=== PATIENT | female | born 1975 | race Caucasian/White ===

== ENCOUNTER 2018-02-28 20:23 | Emergency (ER) | payer OTHER ==
--- NOTE | 2018-02-28 20:36 | EDM.PDOC ---
ED HPI GENERAL MEDICAL PROBLEM - General Chief Complaint: Abdominal Pain Stated Complaint: RIGHT ABDOMINAL PAIN,DIZZY Time Seen by Provider: 02/28/18 20:36 - History of Present Illness INITIAL COMMENTS - FREE TEXT/NARRATIVE: 42-year-old female presents emergency room with abdominal pain. Pain is right lower quadrant is been getting worse over the last several days. Eating seems to make it worse. She's had no constipation diarrhea some nausea no vomiting she's had multiple GI problems in the past she's had cholecystectomy she's had a hysterectomy she states she was supposed to have her ovaries taken out but this hasn't happened prior to coming here from [place] she was supposed to have colonoscopy this never happened. Patient denies any fevers chills no burning or frequency with urination the pain is somewhat sharp localized the right lower quadrant. 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 (see below) Other Treatments FULLING MILL OPERATOR: none Abdomen Pain Score (Numeric/FACES): 8 - Related Data Allergies Allergy/AdvReac Type Severity Reaction Status Date / Time aspirin Allergy Swelling Verified 02/28/18 20:35 Home Meds: Home Meds Citalopram Hydrobromide [Celexa] 40 mg PO DAILY 02/28/18 [History] Omeprazole 20 mg PO DAILY 02/28/18 [History] ED ROS GENERAL - Review of Systems Review Of Systems: See Below Constitutional: Reports: No Symptoms HEENT: Reports: No Symptoms Respiratory: Reports: No Symptoms Cardiovascular: Reports: No Symptoms Endocrine: Reports: No Symptoms GI/Abdominal: Reports: Abdominal Pain, Anorexia, Nausea, Other (Possible fevers) . Denies: Black Stool, Bloody Stool, Constipation, Diarrhea, Hematemesis, Vomiting : Reports: No Symptoms Skin: Reports: No Symptoms Neurological: Reports: No Symptoms Psychiatric: Reports: No Symptoms ED EXAM, GI/ABD - Physical Exam Exam: See Below Exam Limited By: No Limitations General Appearance: Alert, No Apparent Distress Head: Atraumatic, Normocephalic Neck: Normal Inspection, Supple, Non-Tender, Full Range of Motion Respiratory/Chest: No Respiratory Distress, Lungs Clear, Normal Breath Sounds, No Accessory Muscle Use, Chest Non-Tender Cardiovascular: Normal Peripheral Pulses, Regular Rate, Rhythm, No Edema, No Gallop, No JVD, No Murmur, No Rub GI/Abdominal Exam: Normal Bowel Sounds, Soft, Other (Marked tenderness in the right lower quadrant no appreciable rebound or guarding noted no rigidity) Back Exam: Normal Inspection. No: CVA Tenderness (L), CVA Tenderness (R) Extremities: Normal Inspection. No: No Pedal Edema Neurological: Alert, Oriented, Normal Cognition Course - Vital Signs Last Recorded V/S: Last Vital Signs Temp 36.7 C 02/28/18 20:34 Pulse 65 02/28/18 20:34 Resp 20 02/28/18 20:34 BP 141/77 H 02/28/18 20:34 Pulse Ox 97 02/28/18 20:34 - Orders/Labs/Meds Orders: Active Orders 24 hr Category Date Time Status Abdomen Pelvis w Cont [CT] Stat Exams 02/28/18 22:09 Taken HCG QUALITATIVE,URINE [URCHEM] Stat Lab 02/28/18 21:43 Ordered UA W/MICROSCOPIC [URIN] Stat Lab 02/28/18 21:43 Ordered Sodium Chloride 0.9% [Normal Saline] 1,000 ml Med 02/28/18 21:00 Active IV ASDIRECTED Sodium Chloride 0.9% [Saline Flush] Med 02/28/18 22:30 Active 10 ml FLUSH ONETIME PRN Medication Orders Sodium Chloride (Normal Saline) 1,000 mls @ 150 mls/hr IV ASDIRECTED JOE Sodium Chloride (Saline Flush) 10 ml FLUSH ONETIME PRN PRN Reason: IV FLUSH Last Admin: 02/28/18 22:50 Dose: 10 ml Labs: Laboratory Tests 02/28/18 02/28/18 02/28/18 Range/Units 20:54 20:54 21:43 WBC 6.69 (3.98-10.04) K/mm3 RBC 4.86 (3.98-5.22) M/mm3 Hgb 13.3 (11.2-15.7) gm/L Hct 40.6 (34.1-44.9) % MCV 83.5 (79.4-94.8) fl MCH 27.4 (25.6-32.2) pg MCHC 32.8 (32.2-35.5) g/dl RDW Std Deviation 41.4 (36.4-46.3) fL Plt Count 330 (182-369) K/mm3 MPV 9.7 (9.4-12.3) fl Neutrophils % (Manual) 49 (40-60) % Band Neutrophils % 0 (0-10) % Lymphocytes % (Manual) 34 (20-40) % Atypical Lymphs % 0 % Monocytes % (Manual) 7 (2-10) % Eosinophils % (Manual) 9 H (0.7-5.8) % Basophils % (Manual) 1 (0.1-1.2) Platelet Estimate Adequate Plt Morphology Comment Normal RBC Morph Comment Normal Sodium 141 (136-145) mEq/L Potassium 3.3 L (3.5-5.1) mEq/L Chloride 104 (98-107) mEq/L Carbon Dioxide 26 (21-32) mEq/L Anion Gap 14.3 (5-15) BUN 10 (7-18) mg/dL Creatinine 0.8 (0.55-1.02) mg/dL Est Cr Clr Drug Dosing 72.45 mL/min Estimated GFR (MDRD) > 60 (>60) mL/min BUN/Creatinine Ratio 12.5 L (14-18) Glucose 98 (74-106) mg/dL Calcium 8.4 L (8.5-10.1) mg/dL Total Bilirubin 0.3 (0.2-1.0) mg/dL Direct Bilirubin 0.10 (0.0-0.2) mg/dl Indirect Bilirubin 0.20 AST 16 (15-37) U/L ALT 23 (14-59) U/L Alkaline Phosphatase 71 (46-116) U/L Total Protein 7.2 (6.4-8.2) g/dl Albumin 3.4 (3.4-5.0) g/dl Globulin 3.8 gm/dL Albumin/Globulin Ratio 0.9 L (1-2) Lipase 190 (73-393) U/L Urine Color Yellow (Yellow) Urine Appearance Clear (Clear) Urine pH 6.0 (5.0-8.0) Ur Specific [place] > or = 1.030 (1.005-1.030) Urine Protein Negative (Negative) Urine Glucose (UA) Negative (Negative) Urine Ketones Negative (Negative) Urine Occult Blood Negative (Negative) Urine Nitrite Negative (Negative) Urine Bilirubin Negative (Negative) Urine Urobilinogen 0.2 (0.2-1.0) Ur Leukocyte Esterase Negative (Negative) Urine RBC 0-5 (0-5) /hpf Urine WBC 0-5 (0-5) /hpf Ur Epithelial Cells 5-10 H (0-5) /hpf Urine Bacteria Moderate H (FEW) /hpf Urine Mucus Few (FEW) /hpf Urine HCG, Qual (NEGATIVE) 02/28/18 Range/Units 21:43 WBC (3.98-10.04) K/mm3 RBC (3.98-5.22) M/mm3 Hgb (11.2-15.7) gm/L Hct (34.1-44.9) % MCV (79.4-94.8) fl MCH (25.6-32.2) pg MCHC (32.2-35.5) g/dl RDW Std Deviation (36.4-46.3) fL Plt Count (182-369) K/mm3 MPV (9.4-12.3) fl Neutrophils % (Manual) (40-60) % Band Neutrophils % (0-10) % Lymphocytes % (Manual) (20-40) % Atypical Lymphs % % Monocytes % (Manual) (2-10) % Eosinophils % (Manual) (0.7-5.8) % Basophils % (Manual) (0.1-1.2) Platelet Estimate Plt Morphology Comment RBC Morph Comment Sodium (136-145) mEq/L Potassium (3.5-5.1) mEq/L Chloride (98-107) mEq/L Carbon Dioxide (21-32) mEq/L Anion Gap (5-15) BUN (7-18) mg/dL Creatinine (0.55-1.02) mg/dL Est Cr Clr Drug Dosing mL/min Estimated GFR (MDRD) (>60) mL/min BUN/Creatinine Ratio (14-18) Glucose (74-106) mg/dL Calcium (8.5-10.1) mg/dL Total Bilirubin (0.2-1.0) mg/dL Direct Bilirubin (0.0-0.2) mg/dl Indirect Bilirubin AST (15-37) U/L ALT (14-59) U/L Alkaline Phosphatase (46-116) U/L Total Protein (6.4-8.2) g/dl Albumin (3.4-5.0) g/dl Globulin gm/dL Albumin/Globulin Ratio (1-2) Lipase (73-393) U/L Urine Color (Yellow) Urine Appearance (Clear) Urine pH (5.0-8.0) Ur Specific [place] (1.005-1.030) Urine Protein (Negative) Urine Glucose (UA) (Negative) Urine Ketones (Negative) Urine Occult Blood (Negative) Urine Nitrite (Negative) Urine Bilirubin (Negative) Urine Urobilinogen (0.2-1.0) Ur Leukocyte Esterase (Negative) Urine RBC (0-5) /hpf Urine WBC (0-5) /hpf Ur Epithelial Cells (0-5) /hpf Urine Bacteria (FEW) /hpf Urine Mucus (FEW) /hpf Urine HCG, Qual Negative (NEGATIVE) Meds: Medications Generic Name Dose Route Start Last Admin Trade Name Freq PRN Reason Stop Dose Admin Sodium Chloride 1,000 mls @ 150 mls/hr 02/28/18 21:00 Normal Saline IV ASDIRECTED JOE Sodium Chloride 10 ml 02/28/18 22:30 02/28/18 22:50 Saline Flush FLUSH 10 ml ONETIME PRN Administration IV FLUSH Discontinued Medications Generic Name Dose Route Start Last Admin Trade Name Freq PRN Reason Stop Dose Admin Diatrizoate Meglum/Diatrizoate Sod 90 ml 02/28/18 22:30 02/28/18 22:50 Gastrografin 37% PO 02/28/18 22:31 90 ml ONETIME ONE Administration Hydromorphone HCl 0.5 mg 02/28/18 21:29 02/28/18 21:38 Dilaudid IVPUSH 02/28/18 21:30 0.5 mg ONETIME ONE Administration Sodium Chloride 500 mls @ 999 mls/hr 02/28/18 20:45 02/28/18 20:54 Normal Saline IV 02/28/18 21:15 999 mls/hr .BOLUS ONE Administration Iopamidol 100 ml 02/28/18 22:30 02/28/18 22:49 Isovue-300 (61%) IVPUSH 02/28/18 22:31 100 ml ONETIME ONE Administration Ondansetron HCl 4 mg 02/28/18 20:46 02/28/18 20:54 Zofran IVPUSH 02/28/18 20:47 4 mg ONETIME ONE Administration Ondansetron HCl 4 mg 02/28/18 21:29 02/28/18 21:36 Zofran IVPUSH 02/28/18 21:30 4 mg ONETIME ONE Administration - Re-Assessments/Exams Free Text/Narrative Re-Assessment/Exam: 03/01/18 00:23 Labs nondiagnostic went ahead and proceeded CT because of her right lower quadrant pain this is normal Departure - Departure Time of Disposition: 00:23 Disposition: Home, Self-Care 01 Clinical Impression: Abdominal pain of unknown cause - Discharge Information Referrals: PCP,None [Primary Care Provider] - Forms: ED Department Discharge Additional Instructions: Return to the emergency room with any questions problems worsening symptoms. Follow up at the Hospital clinic and see if they can get you more of a workup. [phone]. You have been given 10 hydrocodone from that she now the waiting room allow 12 hours after using this medication before driving or returning to work. - My Orders Last 24 Hours: My Active Orders 02/28/18 21:00 Sodium Chloride 0.9% [Normal Saline] 1,000 ml IV ASDIRECTED 02/28/18 21:43 HCG QUALITATIVE,URINE [URCHEM] Stat UA W/MICROSCOPIC [URIN] Stat 02/28/18 22:09 Abdomen Pelvis w Cont [CT] Stat 02/28/18 22:30 Sodium Chloride 0.9% [Saline Flush] 10 ml FLUSH ONETIME PRN - Assessment/Plan Last 24 Hours: My Active Orders 02/28/18 21:00 Sodium Chloride 0.9% [Normal Saline] 1,000 ml IV ASDIRECTED 02/28/18 21:43 HCG QUALITATIVE,URINE [URCHEM] Stat UA W/MICROSCOPIC [URIN] Stat 02/28/18 22:09 Abdomen Pelvis w Cont [CT] Stat 02/28/18 22:30 Sodium Chloride 0.9% [Saline Flush] 10 ml FLUSH ONETIME PRN
[2018-02-28] MEDS ORDERED: Sodium Chloride 0.9% 500 ML IV ONE (20:45)
[2018-02-28] MEDS ORDERED: Ondansetron 4 MG/2 ML SDV IVPUSH ONE ×2 (20:46→21:29)
[2018-02-28] MEDS ORDERED: Sodium Chloride 0.9% 1,000 ML IV SCH (21:00)
[2018-02-28] MEDS ORDERED: HYDROmorphone 0.5 MG/0.5 ML SYRINGE IVPUSH ONE (21:29)
[2018-02-28] MEDS ORDERED: Sodium Chloride 0.9% 10 ML Syringe FLUSH PRN (22:30)
[2018-02-28] MEDS ORDERED: Iopamidol 612 MG/ML 100 ML Bottle IVPUSH ONE (22:30)
[2018-02-28] MEDS ORDERED: Diatrizoate Meglumine/Diatrizoate Sodium 37% 120 ML Bottle PO ONE (22:30)
--- NOTE | 2018-03-01 15:28 | CT ---
CT abdomen and pelvis Technique: Multiple axial sections were obtained from above the dome of the diaphragm inferiorly through the pubic symphysis. Intravenous contrast was utilized. No oral contrast has been given. Delayed images were obtained through the bladder. Comparison: No previous study. Findings: Visualized lung bases show nothing acute. Contrast is noted within the distal esophagus compatible with reflux. Liver shows no focal parenchymal abnormality. Spleen appears within normal limits. Adrenal glands show no nodule. Pancreas appears normal. Kidneys show symmetric contrast enhancement without hydronephrosis or mass. Aorta shows no aneurysmal dilatation. Surgical clip is seen from prior cholecystectomy. No retroperitoneal adenopathy or mesenteric abnormalities are seen. Appendix is seen which is normal in size. No pelvic mass or adenopathy is seen. Diverticuli are seen within the sigmoid colon without diverticulitis. Delayed images show contrast within the distal ureters and within the bladder. Bone window settings show scattered disc space narrowing most severe at L3-L4 and L5-S1 with vacuum phenomena. Sclerosis is seen within the L3-S1 vertebral bodies likely degenerative in etiology. Posterior spurring and degenerative apophyseal change is noted within the lower lumbar spine. Impression: 1. Incidental findings as noted above. Nothing acute is seen on CT study of the abdomen and pelvis. Diagnostic code #2 I agree with preliminary report issued by [employer] ([facility] preliminary report dictated on 03/01/18, 12:47 AM Central Time)
== END 2018-03-01 00:47 | disposition home or self-care (01) ==
LOC: JD.ED 20:23
DX: R10.31 Right lower quadrant pain (principal); Z88.8 Allergy status to other drugs, medicaments and biological substances; Z79.899 Other long term (current) drug therapy
CPT/HCPCS: 36415; 74177; 80048; 80076; 81001; 81025; 83690; 85007; 85027; 96361; 96374; 96375; 96376; 99284; J1170; J2405; J7040; J7050; Q9963; Q9967

== ENCOUNTER 2018-03-10 11:20 | Emergency (ER) | payer MEDICAID ==
--- NOTE | 2018-03-10 11:41 | EDM.PDOC ---
ED HPI GENERAL MEDICAL PROBLEM - General Chief Complaint: General Stated Complaint: RT SIDE PAIN,DIZZY,FALLS,NAUSEA Time Seen by Provider: 03/10/18 11:38 Source of Information: Reports: Patient History Limitations: Reports: No Limitations - History of Present Illness INITIAL COMMENTS - FREE TEXT/NARRATIVE: 42-year-old female presents to the ED stating that she has a severe migraine headache for the last several days. She states she's hardly getting a day in between where she doesn't have a bad headache. And otherwise is her chronic daily headaches associated with nausea and vomiting. She recently relocated to [facility] from [place]. She had these problems in [place] before leaving but this seemed to be getting worse. He states that she has been able to keep anything down for the last 2 days. She has also severe diarrhea 5- 6 loose high-volume watery stools per rectum per day. She was labeled with irritable bowel syndrome prior to leaving [place] and was supposed to have a colonoscopy carried out but which never done. She complains of diffuse right- sided abdominal pain worsening over time. She has noticed some blood on wiping on a few occasions but no true blood in the stool. She was worked up by Dr. Mosqueda 10 days ago through the ED and this included a CT of the abdomen which was reported to be normal. Patient said previous cholecystectomy and hysterectomy but has retained ovaries. Reports he was also supposed to get her ovaries removed prior to leaving [place]. She has never been placed on any remittive agent for prevention of headaches. She states that she is very lightheaded dizzy and will suddenly collapsed to the floor sometimes 2 or 3 times per day. She reports she had an MRI in [place] prior to leaving that state and it was reported to show scar tissue but no other abnormalities. This lady is going to require treatment with a primary care provider to help set up neurological and gastroenterology follow-ups. Onset: Other (Chronic problems) Onset Date: 03/01/18 (Diarrhea started about 7-8 days ago.) Duration: Chronic (Chronic daily headaches. Labeled as migraine because of associated nausea and vomiting. Chronic diarrhea and irritable bowel syndrome. Chronic right-sided joann-abdominal pain.) Location: Reports: Head, Abdomen Quality: Reports: Pressure, Throbbing, Other Severity: Severe (Labels her headaches as 10 on a 10. Abdominal pain is usually 6-7 out of 10.) Improves with: Reports: None Worsens with: Reports: Movement Context: Denies: Activity, Exercise, Lifting, Sick Contact, Trauma, Other Associated Symptoms: Reports: Loss of Appetite, Malaise, Nausea/Vomiting ( Associated with the severity of headache), Syncope (Recurrent syncopal problems) , Other (Recurrent syncopal events sometimes 2 or 3 times a day she'll go down to the floor. She has no apparent injuries or broken bones from these falls.). 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: Reports: Other (see below) (None.) Headache Pain Score (Numeric/FACES): 10 - Related Data Allergies Allergy/AdvReac Type Severity Reaction Status Date / Time aspirin Allergy Swelling Verified 03/10/18 11:35 Home Meds: Home Meds Citalopram Hydrobromide [Celexa] 40 mg PO DAILY 02/28/18 [History] Omeprazole 20 mg PO DAILY 02/28/18 [History] Acetaminophen/Butalbital/Caff [Fioricet 325-50-40 MG] 1 each PO Q6HR PRN #12 tab 03/10/18 [Rx] Acetaminophen/HYDROcodone [[place] 325-5 MG] 1 - 2 tab PO Q6H PRN #30 tablet 03/10 [Rx] Ondansetron [Zofran] 4 mg BUCCAL Q6H PRN #12 tab 03/10/18 [Rx] Polyethylene Glycol 3350 [MiraLAX] 255 gm PO DAILY #1 cont 03/10/18 [Rx] Past Medical History Cardiovascular History: Reports: Syncope (Recurrent syncopal events. This associate with large-volume diarrhea stool losses reported nausea and vomiting and not being able to eat or drink.) Gastrointestinal History: Reports: GERD, Other (See Below) (Usually has loose stools and has been labeled with irritable bowel syndrome. She requires a colonoscopy to rule out inflammatory bowel disorder.) Neurological History: Reports: Headaches, Chronic (Chronic daily headaches for several months but they seem to be getting worse.), Migraines, Other (See Below) - Past Surgical History GI Surgical History: Reports: Cholecystectomy Female Surgical History: Reports: Hysterectomy Social & Family History - Tobacco Use Smoking Status *Q: Current Every Day Smoker Years of Tobacco use: 20 Packs/Tins Daily: 0.5 - Caffeine Use Caffeine Use: Reports: Coffee, Tea - Recreational Drug Use Recreational Drug Use: No - Living Situation & Occupation Living situation: Reports: Occupation: Employed ED ROS GENERAL - Review of Systems Review Of Systems: See Below Constitutional: Reports: Malaise, Weakness, Fatigue, Decreased Appetite, Weight Loss. Denies: Fever, Chills HEENT: Reports: Glasses (For reading.) Respiratory: Reports: No Symptoms Cardiovascular: Reports: No Symptoms Endocrine: Reports: Fatigue GI/Abdominal: Reports: Abdominal Pain (Diffuse right joann-abdominal pain mostly lateral right mid), Diarrhea ( abdominal pain recently having quite severe diarrhea 6-7 large-volume stool losses per day that, without warning and couldn' t have caused accidents in the workplace. No recent antibiotic usage in the last 6 weeks ), Nausea, Vomiting (Dementia is related to GI problem or headaches.), Other (Has received labeled of irritable bowel syndrome for her chronic abdominal pain.). Denies: Difficulty Swallowing, Distension, Flatus, Hematemesis, Hematochezia, Melena : Reports: No Symptoms Musculoskeletal: Reports: Joint Pain Skin: Reports: No Symptoms (These hips and neck at times) Neurological: Reports: Dizziness, Headache (Chronic daily headaches), Syncope ( Continues to get dizzy lightheaded and pass out. This can sometimes happen 2 or 3 times daily.), Weakness. Denies: Numbness, Paresthesia, Pre-Existing Deficit , Seizure, Tingling, Tremors, Trouble Speaking, Difficulty Walking Psychiatric: Reports: Anxiety, Depression (On citalopram.) Hematologic/Lymphatic: Reports: No Symptoms Immunologic: Reports: No Symptoms ED EXAM, GENERAL - Physical Exam Exam: See Below Exam Limited By: No Limitations General Appearance: Alert, WD/WN, Moderate Distress, Other (White tearful and anxious. Wearing dark sunglasses otherwise examined in a dark room with her glasses off.) Eye Exam: Bilateral Eye: Normal Inspection, PERRL Throat/Mouth: Normal Inspection, Normal Lips, Other Head: Atraumatic, Normocephalic (Tongue is dry and coated) Neck: Normal Inspection, Supple, Non-Tender, Full Range of Motion, Tender Lateral. No: Carotid Bruit, Lymphadenopathy (L), Lymphadenopathy (R) Respiratory/Chest: Lungs Clear (Tachypnea, examination but she is quite anxious. ), Normal Breath Sounds, No Accessory Muscle Use, Chest Non-Tender, Respiratory Distress Cardiovascular: Normal Peripheral Pulses, Regular Rate, Rhythm, No Edema, No Gallop, No Murmur, No Rub Peripheral Pulses: 3+: Posterior Tibial (L), Posterior Tibial (R), Dorsalis Pedis (L), Dorsalis Pedis (R) GI/Abdominal: Guarding (Right mid and upper abdomen.), Tender (Tenderness throughout the right hemiabdomen particularly right mid lateral abdomen.), Abnormal Bowel Sounds (Fairly quiet sent at this time. She reports is usually growling and gurgling.). No: Rigid, Rebound Back Exam: Normal Inspection, Full Range of Motion Extremities: Normal Inspection, Normal Range of Motion, Non-Tender, No Pedal Edema Neurological: Oriented, CN II-XII Intact, Normal Cognition, Normal Reflexes, No Motor/Sensory Deficits Psychiatric: Tearful Skin Exam: Warm, Dry, Intact, Normal Color, No Rash Course - Vital Signs Last Recorded V/S: Last Vital Signs Temp 36.3 C 03/10/18 13:58 Pulse 60 03/10/18 13:58 Resp 20 03/10/18 11:28 BP 120/70 03/10/18 13:58 Pulse Ox 100 03/10/18 13:58 Orthostatic Blood Pressure [ 126/94 Standing] Orthostatic Blood Pressure [ 145/92 Sitting] Orthostatic Blood Pressure [ 136/79 Supine] - Orders/Labs/Meds Orders: Active Orders 24 hr Category Date Time Status Orthostatic Vital Signs [RC] ASDIRECTED Care 03/10/18 11:39 Active C DIFFICILE BY PCR W/NAP1 [MOLEC] Stat Lab 03/10/18 13:03 Ordered CULTURE STOOL + SHIGATOX [RM] Stat Lab 03/10/18 13:03 Ordered URINALYSIS W/MICROSCOPIC [UA W/MICROSCOPIC] [URIN] Stat Lab 03/10/18 12:10 Ordered WBC, STOOL [OP] Stat Lab 03/10/18 13:03 Ordered Labs: Laboratory Tests 03/10/18 03/10/18 03/10/18 Range/Units 11:55 11:55 12:10 WBC 6.65 (3.98-10.04) K/mm3 RBC 4.88 (3.98-5.22) M/mm3 Hgb 13.5 (11.2-15.7) gm/L Hct 41.1 (34.1-44.9) % MCV 84.2 (79.4-94.8) fl MCH 27.7 (25.6-32.2) pg MCHC 32.8 (32.2-35.5) g/dl RDW Std Deviation 40.5 (36.4-46.3) fL Plt Count 357 (182-369) K/mm3 MPV 9.6 (9.4-12.3) fl Neutrophils % (Manual) 62 H (40-60) % Band Neutrophils % 2 (0-10) % Lymphocytes % (Manual) 31 (20-40) % Atypical Lymphs % 0 % Monocytes % (Manual) 1 L (2-10) % Eosinophils % (Manual) 4 (0.7-5.8) % Basophils % (Manual) 0 L (0.1-1.2) Platelet Estimate Adequate RBC Morph Comment Normal Sodium 138 (136-145) mEq/L Potassium 3.8 (3.5-5.1) mEq/L Chloride 103 (98-107) mEq/L Carbon Dioxide 29 (21-32) mEq/L Anion Gap 9.8 (5-15) BUN 9 (7-18) mg/dL Creatinine 0.7 (0.55-1.02) mg/dL Est Cr Clr Drug Dosing 82.80 mL/min Estimated GFR (MDRD) > 60 (>60) mL/min BUN/Creatinine Ratio 12.9 L (14-18) Glucose 94 (74-106) mg/dL Calcium 8.8 (8.5-10.1) mg/dL Magnesium 1.9 (1.8-2.4) mg/dl Total Bilirubin 0.3 (0.2-1.0) mg/dL AST 16 (15-37) U/L ALT 21 (14-59) U/L Alkaline Phosphatase 74 (46-116) U/L C-Reactive Protein 0.3 (<1.0) mg/dL Total Protein 7.4 (6.4-8.2) g/dl Albumin 3.6 (3.4-5.0) g/dl Globulin 3.8 gm/dL Albumin/Globulin Ratio 1.0 (1-2) Urine Color Yellow (Yellow) Urine Appearance Clear (Clear) Urine pH 7.0 (5.0-8.0) Ur Specific [place] 1.020 (1.005-1.030) Urine Protein Negative (Negative) Urine Glucose (UA) Negative (Negative) Urine Ketones Negative (Negative) Urine Occult Blood Trace-intact H (Negative) Urine Nitrite Negative (Negative) Urine Bilirubin Negative (Negative) Urine Urobilinogen 0.2 (0.2-1.0) Ur Leukocyte Esterase Negative (Negative) Urine RBC 0-5 (0-5) /hpf Urine WBC 0-5 (0-5) /hpf Ur Epithelial Cells 0-5 (0-5) /hpf Urine Bacteria Many H (FEW) /hpf Urine Mucus Not seen (FEW) /hpf Meds: Medications Discontinued Medications Generic Name Dose Route Start Last Admin Trade Name Freq PRN Reason Stop Dose Admin Diphenhydramine HCl 25 mg 03/10/18 11:51 03/10/18 12:12 Benadryl IVPUSH 03/10/18 11:52 25 mg ONETIME ONE Administration Hydromorphone HCl 1 mg 03/10/18 11:51 03/10/18 12:15 Dilaudid IVPUSH 03/10/18 11:52 1 mg ONETIME ONE Administration Dextrose/Sodium Chloride 1,000 mls @ 999 mls/hr 03/10/18 11:45 03/10/18 12:13 Dextrose 5%-Normal Saline IV 999 mls/hr ASDIRECTED JOE Administration Metoclopramide HCl 10 mg 03/10/18 11:51 03/10/18 12:14 Reglan IVPUSH 03/10/18 11:52 10 mg ONETIME ONE Administration - Radiology Interpretation Free Text/Narrative:: 42-year-old female presents to the ED with chronic daily headache which is labeled as migrainous but is likely more likely be chronic daily headaches. This is associated with nausea and vomiting intermittently however. Chest shows chronic right joann-abdominal pain associate with now significant large-volume stool losses 56-7 times per day. This suggests a secretory diarrhea and a sample of stool be obtained if she passes one in the ED. Rule out Clostridium difficile and cultures will be obtained. She was tender in the right upper quadrant abdomen. She had a CT scan of the abdomen done 10 days ago through the ED which was reported as normal. Review this myself. She claims she's not been able to eat or drink for the last several days. She continues to have recurrent drop attacks or syncopal events and finds herself lying on the carpet fairly often. She hasn't got hurt however from any of these falls. States the headache pain is currently 10 out of 10. Associated with nausea and vomiting. She is lightheaded and very dizzy. Plan orthostatic BPs. IV will be D5 normal saline at open. Routine labs to be collected. Stool for culture and sensitivity and C. difficile enteritis will be checked. We'll give her Dilaudid 1 mg IV with Reglan 10 mg IV and Benadryl 25 mg IV for headache relief. It appears that she has had multiple investigations including recent MRI of her brain which did not show any abnormalities within the last 6 months. - Re-Assessments/Exams Free Text/Narrative Re-Assessment/Exam: 03/10/18 13:01 x-ray of the abdomen today reveals increased stool throughout the right hemicolon the descending colon and down into the rectum. Distention question how much diarrhea the patient is actually experiencing. I did review CT scan scan of the abdomen and pelvis done 10 days ago and it revealed no significant abnormalities other than several diverticuli of the sigmoid colon particularly. There was no acute diverticulitis. He did reveal significant degenerative arthritic changes throughout portions of the lumbar spine particular the facet joints and also throughout the sacrum. This may be more likely be the cause of her chronic right sided back /lateral abdominal pain. 03/10/18 13:08 Labs reveal a normal white count at 6.65 with 62% neutrophils and 2% bands reported. Hemoglobin is 13.5 with hematocrit of 41.1. Platelet count is 357,000. Sodium is 138 with a potassium of 3.8. Chloride is 103 with a bicarbonate of 29. Anion gap is normal at 9.8. BUN is 9 with a creatinine of 0.7. EGFR is greater than 60. Glucose is 94 calcium is 8.8. Magnesium is 1.9. Liver function is normal. C-reactive protein is 0.3. Urinalysis shows trace of occult blood with many bacteria seen. However there is negative leukocyte esterase and no wbc's noted on the micro-. 03/10/18 13:51 patient is feeling better. I had a long visit with her and I suggest that she go off the omeprazole encases the cause of the headache and cramping and diarrhea intermittently I continue to irritable bowel syndrome- like symptoms. Zantac 150 milligrams twice daily. Suggest use of MiraLAX powder 17 g once daily for the next 2-3 weeks to see if we can stabilize her bowel function as x-ray and CT suggests that there is a problem with constipation primarily involving the right hemicolon where all of her pain is. A lot of this pain may be referred from facet joint arthropathy in her lower back however. I will prescribe Imitrex tablets to be taken at the onset of her migraine headaches. She may not be able to fill the still her insurance kicks in March 24. She will use [place] 5/3/25 milligram tablets one or 2 every 6 hours as needed for back pain primarily but also for severe migraine if needed. Zofran 4 mg sublingually every 6 hours. For nausea relief if she gets a severe migraine. So we'll place her on meloxicam 15 mg daily for relief of low back pain arthritis. She is going to need follow-up with primary care practice recommended family practice at the opposite end of the hospital. She is going need to need referral to neurology if her headaches persist. She is going to need referral to gastroenterology or surgeon for colonoscopy. Departure - Departure Time of Disposition: 13:54 Disposition: Home, Self-Care 01 Condition: Fair Clinical Impression: Chronic daily headache, Migraine equivalent syndrome Abdominal pain Qualifiers: Abdominal location: right upper quadrant Qualified Code(s): R10.11 - Right upper quadrant pain Degenerative arthritis of lumbar spine Qualifiers: Spinal osteoarthritis complication: without myelopathy or radiculopathy Qualified Code(s): M47.816 - Spondylosis without myelopathy or radiculopathy, lumbar region - Discharge Information *PRESCRIPTION DRUG MONITORING PROGRAM REVIEWED*: No *COPY OF PRESCRIPTION DRUG MONITORING REPORT IN PATIENT SAMANTA: No Prescriptions: Acetaminophen/Butalbital/Caff [Fioricet 325-50-40 MG] 1 each PO Q6HR PRN #12 tab PRN Reason: migraine headache. Acetaminophen/HYDROcodone [[place] 325-5 MG] 1 - 2 tab PO Q6H PRN #30 tablet PRN Reason: back pain/migraine Ondansetron [Zofran] 4 mg BUCCAL Q6H PRN #12 tab PRN Reason: nausea or vomiting Polyethylene Glycol 3350 [MiraLAX] 255 gm PO DAILY #1 cont Instructions: Abdominal Pain, Adult, Migraine Headache Referrals: PCP,None [Primary Care Provider] - Forms: ED Department Discharge, ED Return to Work/School Form Additional Instructions: Evaluation in the emergency room today in regards to chronic headaches almost on a daily basis. Headaches are often associated with nausea and vomiting and are labeled as migraine equivalent headaches. I have some concerns that the may be aggravated by current use of omeprazole. Omeprazole is known to cause chronic headache syndrome. Second problem was chronic right sided abdominal pain. Creatinine today ,similar to CT done to 10 days ago reveal increased stool throughout the right hemicolon that may be causing a plugged sensation. May be causing causing chronic pain syndrome as stools not supposed to follow- up in the right colon but for multiple The left josie Therefore suggest the use of MiraLAX powder 17 g once daily to keep the bowels working regularly. Suggest trying this for a period of at least 2 weeks to see if it makes a difference. As we discussed discontinuing the omeprazole and replacing it with Zantac 150 milligrams once daily at bedtime would be equal amounts for controlling acid reflux disease. This may alleviate headaches and some abdominal cramping pain and diarrhea that you are experiencing is omeprazole can also do this. Medications that are used to abort migraine headaches called acceptance are contraindicated unfortunately when you are on citalopram due to potential adverse effects. Therefore suggest use of Fioracet tablets -1 at onset of migraine headache. He uses [place] tablets 5/3/25 milligrams as needed for headache and back pain relief. Just use of Zofran 4 mg under the tongue every 4-6 hours as needed for relief of nausea vomiting associate with migraine headache. Suggest a trial of anti inflammatory Meloxicam 15mg once daily for 2 weeks to see if thsi will ease up lower back pain arthritis inflamation. It can sometimes help reduce headaches as well. Suggest follow up with Dr Conteh or ROMI-- Nicole Pitts or Katherine Mosley on the family medicine unit of the [facility] to arrange follow up with neurologist and rebrander. - My Orders Last 24 Hours: My Active Orders 03/10/18 11:39 Orthostatic Vital Signs [RC] ASDIRECTED 03/10/18 12:10 URINALYSIS W/MICROSCOPIC [UA W/MICROSCOPIC] [URIN] Stat 03/10/18 13:03 C DIFFICILE BY PCR W/NAP1 [MOLEC] Stat CULTURE STOOL + SHIGATOX [RM] Stat WBC, STOOL [OP] Stat - Assessment/Plan Last 24 Hours: My Active Orders 03/10/18 11:39 Orthostatic Vital Signs [RC] ASDIRECTED 03/10/18 12:10 URINALYSIS W/MICROSCOPIC [UA W/MICROSCOPIC] [URIN] Stat 03/10/18 13:03 C DIFFICILE BY PCR W/NAP1 [MOLEC] Stat CULTURE STOOL + SHIGATOX [RM] Stat WBC, STOOL [OP] Stat
[2018-03-10] MEDS ORDERED: Dextrose 5%-0.9% NaCl 1,000 ML IV SCH (11:45)
[2018-03-10] MEDS ORDERED: Metoclopramide 10 MG/2 ML SDV IVPUSH ONE (11:51)
[2018-03-10] MEDS ORDERED: HYDROmorphone 0.5 MG/0.5 ML SYRINGE IVPUSH ONE (11:51)
[2018-03-10] MEDS ORDERED: diphenhydrAMINE 50 MG/ML SDV IVPUSH ONE (11:51)
--- NOTE | 2018-03-10 12:52 | CR ---
Abdomen: Supine view of the abdomen was obtained. Comparison: Prior CT abdomen and pelvis exam of 02/28/18. Surgical clips are seen from prior cholecystectomy. Calcifications are noted within the pelvis which are felt compatible with phleboliths. Minimal scoliosis is noted within the spine with slight degenerative change. Bowel gas pattern is normal. Impression: 1. Incidental findings. Diagnostic code #2
== END 2018-03-10 14:29 | disposition home or self-care (01) ==
LOC: JD.ED 11:20
DX: G43.109 Migraine with aura, not intractable, without status migrainosus (principal); M47.816 Spondylosis without myelopathy or radiculopathy, lumbar region; R10.11 Right upper quadrant pain; F17.210 Nicotine dependence, cigarettes, uncomplicated; Z79.899 Other long term (current) drug therapy; Z88.8 Allergy status to other drugs, medicaments and biological substances
CPT/HCPCS: 36415; 74018; 80053; 81001; 83735; 85007; 85027; 86140; 96361; 96374; 96375; 99284; J1170; J1200; J2765; J7042

== ENCOUNTER 2018-05-06 07:31 | Emergency (ER) | payer MEDICAID ==
[2018-05-06] MEDS ORDERED: Sodium Chloride 0.9% 10 ML Syringe FLUSH PRN (07:44)
[2018-05-06] MEDS ORDERED: Sodium Chloride 0.9% 1,000 ML IV SCH (07:45)
[2018-05-06] MEDS ORDERED: HYDROmorphone 0.5 MG/0.5 ML SYRINGE IVPUSH ONE (07:45)
--- NOTE | 2018-05-06 10:02 | EDM.PDOC ---
ED HPI GENERAL MEDICAL PROBLEM - General Chief Complaint: Abdominal Pain Stated Complaint: BACK PAIN/SIDE PAIN/ABDOMINAL PAIN Time Seen by Provider: 05/06/18 07:38 Source of Information: Reports: Patient History Limitations: Reports: No Limitations - History of Present Illness INITIAL COMMENTS - FREE TEXT/NARRATIVE: The patient presents with low back pain and lower abdominal pain. This all started with low back pain a few days ago. She did not hurt her self such as falling, lifting or twisting. She has pain going down both legs but more on the right. She has some numbness but no weakness. She has some pain that radiates to her lower abdomen. She has no frequency or burning with urination. She has had some trouble with her back and abdomen before. She had a CT done last month and it showed degenerative changes to the lumbar spine. She has no fever, chills, cough, chest pain, nausea or vomiting. 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, Home Treatments, NSAIDS Bilateral Lower Abdominal Pain Score (Numeric/FACES): 10 - Related Data Allergies Allergy/AdvReac Type Severity Reaction Status Date / Time aspirin Allergy Swelling Verified 05/06/18 07:45 ketorolac [From Toradol] Allergy Itching Verified 05/06/18 07:45 Home Meds: Home Meds Citalopram Hydrobromide [Celexa] 40 mg PO DAILY 02/28/18 [History] Omeprazole 20 mg PO DAILY 02/28/18 [History] Acetaminophen/Butalbital/Caff [Fioricet 325-50-40 MG] 1 each PO Q6HR PRN #12 tab 03/10/18 [Rx] Acetaminophen/HYDROcodone [[place] 325-5 MG] 1 - 2 tab PO Q6H PRN #30 tablet 03/10 [Rx] Cyclobenzaprine [Flexeril] 10 mg PO TID PRN #20 tab 05/06/18 [Rx] Hydrocodone/Acetaminophen [Hydrocodon-Acetaminophen 5-325] 1 - 2 each PO Q6HR PRN #20 tablet 05/06/18 [Rx] Polyethylene Glycol 3350 [MiraLAX] 255 gm PO DAILY 05/06/18 [History] Past Medical History Cardiovascular History: Reports: Syncope Gastrointestinal History: Reports: GERD, Other (See Below) 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) Other LINOTYPE MACHINIST History: HISTORECTOMY Musculoskeletal History: Reports: Arthritis, Back Pain, Chronic Neurological History: Reports: Headaches, Chronic, Migraines, Other (See Below) - Past Surgical History GI Surgical History: Reports: Cholecystectomy Female Surgical History: Reports: Hysterectomy Social & Family History - Family History Family Medical History: Noncontributory - Tobacco Use Smoking Status *Q: Never Smoker - Caffeine Use Caffeine Use: Reports: Soda - Recreational Drug Use Recreational Drug Use: No - Living Situation & Occupation Living situation: Reports: Occupation: Employed ED ROS GENERAL - Review of Systems Review Of Systems: See Below Constitutional: Reports: No Symptoms HEENT: Reports: No Symptoms Respiratory: Reports: No Symptoms Cardiovascular: Reports: No Symptoms Endocrine: Reports: No Symptoms GI/Abdominal: Reports: Abdominal Pain. Denies: Nausea, Vomiting : Reports: No Symptoms Musculoskeletal: Reports: Back Pain ED EXAM, GI/ABD - Physical Exam Exam: See Below Exam Limited By: No Limitations General Appearance: Alert, No Apparent Distress Ears: Normal External Exam Nose: Normal Inspection Head: Atraumatic, Normocephalic Neck: Normal Inspection Respiratory/Chest: No Respiratory Distress, Lungs Clear, Normal Breath Sounds Cardiovascular: Regular Rate, Rhythm, No Edema, No Murmur GI/Abdominal Exam: Soft, No Organomegaly, No Mass, Tender (Mild tenderness to the lower abdomen) Back Exam: Other (Pain upon palpation to the low back with more on the right.) Extremities: Normal Inspection Neurological: Alert, Oriented, Normal Reflexes, No Motor/Sensory Deficits Course - Vital Signs Last Recorded V/S: Last Vital Signs Temp 98.2 F 05/06/18 07:39 Pulse 76 05/06/18 07:39 Resp 17 05/06/18 07:39 BP 114/97 H 05/06/18 07:39 Pulse Ox 100 05/06/18 07:39 - Orders/Labs/Meds Orders: Active Orders 24 hr Category Date Time Status Cardiac Monitoring [RC] . DIRECTED Care 05/06/18 07:44 Active Peripheral IV Care [RC] . DIRECTED Care 05/06/18 07:45 Active Sodium Chloride 0.9% [Normal Saline] 1,000 ml Med 05/06/18 07:45 Active IV ASDIRECTED Sodium Chloride 0.9% [Saline Flush] Med 05/06/18 07:44 Active 10 ml FLUSH ASDIRECTED PRN Peripheral IV Insertion Adult [OM.PC] Stat Oth 05/06/18 07:44 Ordered Medication Orders Sodium Chloride (Normal Saline) 1,000 mls @ 125 mls/hr IV ASDIRECTED JOE Last Admin: 05/06/18 08:19 Dose: 125 mls/hr Sodium Chloride (Saline Flush) 10 ml FLUSH ASDIRECTED PRN PRN Reason: Keep Vein Open Last Admin: 05/06/18 08:57 Dose: 10 ml Labs: Laboratory Tests 05/06/18 05/06/18 05/06/18 Range/Units 08:00 08:00 09:00 WBC 5.16 (3.98-10.04) K/mm3 RBC 4.92 (3.98-5.22) M/mm3 Hgb 13.9 (11.2-15.7) gm/L Hct 41.6 (34.1-44.9) % MCV 84.6 (79.4-94.8) fl MCH 28.3 (25.6-32.2) pg MCHC 33.4 (32.2-35.5) g/dl RDW Std Deviation 40.3 (36.4-46.3) fL Plt Count 319 (182-369) K/mm3 MPV 10.0 (9.4-12.3) fl Neut % (Auto) 57.6 (34.0-71.1) % Lymph % (Auto) 29.8 (19.3-51.7) % [place] % (Auto) 6.0 (4.7-12.5) % Eos % (Auto) 5.4 (0.7-5.8) Baso % (Auto) 1.0 (0.1-1.2) % Neut # (Auto) 2.97 (1.56-6.13) K/mm3 Lymph # (Auto) 1.54 (1.18-3.74) K/mm3 [place] # (Auto) 0.31 (0.24-0.36) K/mm3 Eos # (Auto) 0.28 (0.04-0.36) K/mm3 Baso # (Auto) 0.05 (0.01-0.08) K/mm3 Sodium 139 (136-145) mEq/L Potassium 4.0 (3.5-5.1) mEq/L Chloride 105 (98-107) mEq/L Carbon Dioxide 22 (21-32) mEq/L Anion Gap 16.0 H (5-15) BUN 12 (7-18) mg/dL Creatinine 0.7 (0.55-1.02) mg/dL Est Cr Clr Drug Dosing 82.80 mL/min Estimated GFR (MDRD) > 60 (>60) mL/min BUN/Creatinine Ratio 17.1 (14-18) Glucose 102 (74-106) mg/dL Calcium 8.9 (8.5-10.1) mg/dL Total Bilirubin 0.3 (0.2-1.0) mg/dL AST 13 L (15-37) U/L ALT 7 L (14-59) U/L Alkaline Phosphatase 67 (46-116) U/L Total Protein 7.5 (6.4-8.2) g/dl Albumin 3.6 (3.4-5.0) g/dl Globulin 3.9 gm/dL Albumin/Globulin Ratio 0.9 L (1-2) Urine Color Yellow (Yellow) Urine Appearance Clear (Clear) Urine pH 6.0 (5.0-8.0) Ur Specific [place] > or = 1.030 (1.005-1.030) Urine Protein Negative (Negative) Urine Glucose (UA) Negative (Negative) Urine Ketones Negative (Negative) Urine Occult Blood Trace-lysed H (Negative) Urine Nitrite Negative (Negative) Urine Bilirubin Negative (Negative) Urine Urobilinogen 0.2 (0.2-1.0) Ur Leukocyte Esterase Negative (Negative) Urine RBC 0-5 (0-5) /hpf Urine WBC 0-5 (0-5) /hpf Ur Epithelial Cells 5-10 H (0-5) /hpf Urine Bacteria Many H (FEW) /hpf Urine Mucus Many H (FEW) /hpf Meds: Medications Generic Name Dose Route Start Last Admin Trade Name Freq PRN Reason Stop Dose Admin Sodium Chloride 1,000 mls @ 125 mls/hr 05/06/18 07:45 05/06/18 08:19 Normal Saline IV 125 mls/hr ASDIRECTED JOE Administration Sodium Chloride 10 ml 05/06/18 07:44 05/06/18 08:57 Saline Flush FLUSH 10 ml ASDIRECTED PRN Administration Keep Vein Open Discontinued Medications Generic Name Dose Route Start Last Admin Trade Name Na PRN Reason Stop Dose Admin Diazepam 5 mg 05/06/18 07:45 05/06/18 08:11 Valium IVPUSH 05/06/18 07:46 5 mg ONETIME ONE Administration Hydromorphone HCl 0.5 mg 05/06/18 07:45 05/06/18 08:09 Dilaudid IVPUSH 05/06/18 07:46 0.5 mg ONETIME ONE Administration - Re-Assessments/Exams Free Text/Narrative Re-Assessment/Exam: 05/06/18 10:00 I ordered an IV NS, labs, UA, dilaudid and valium. Her CBC and CMP looks good. Her UA shows no UTI. I will get her a muscle relaxer and something more for pain. She is having an MRI of her brain on the . I feel she needs an MRI of her lumbar spine. I will order that. I will discharge her home. Departure - Departure Time of Disposition: 10:05 Disposition: Home, Self-Care 01 Condition: Good Clinical Impression: Low back pain Qualifiers: Chronicity: acute Back pain laterality: right Sciatica presence: with sciatica Sciatica laterality: sciatica of right side Qualified Code(s): M54.41 - Lumbago with sciatica, right side - Discharge Information *PRESCRIPTION DRUG MONITORING PROGRAM REVIEWED*: No *COPY OF PRESCRIPTION DRUG MONITORING REPORT IN PATIENT SAMANTA: No Prescriptions: Hydrocodone/Acetaminophen [Hydrocodon-Acetaminophen 5-325] 1 - 2 each PO Q6HR PRN #20 tablet PRN Reason: Pain Cyclobenzaprine [Flexeril] 10 mg PO TID PRN #20 tab PRN Reason: Pain Referrals: Elaine Vazquez MD [Primary Care Provider] - 2 Weeks Additional Instructions: Take the medication as prescribed for pain. I put an order in for an MRI of your back. They will call you with a time. Please return if you are worse. - My Orders Last 24 Hours: My Active Orders 05/06/18 07:44 Cardiac Monitoring [RC] . DIRECTED Sodium Chloride 0.9% [Saline Flush] 10 ml FLUSH ASDIRECTED PRN Peripheral IV Insertion Adult [OM.PC] Stat 05/06/18 07:45 Peripheral IV Care [RC] . DIRECTED Sodium Chloride 0.9% [Normal Saline] 1,000 ml IV ASDIRECTED - Assessment/Plan Last 24 Hours: My Active Orders 05/06/18 07:44 Cardiac Monitoring [RC] . DIRECTED Sodium Chloride 0.9% [Saline Flush] 10 ml FLUSH ASDIRECTED PRN Peripheral IV Insertion Adult [OM.PC] Stat 05/06/18 07:45 Peripheral IV Care [RC] . DIRECTED Sodium Chloride 0.9% [Normal Saline] 1,000 ml IV ASDIRECTED
== END 2018-05-06 10:20 | disposition home or self-care (01) ==
LOC: JD.ED 07:31
DX: M54.41 Lumbago with sciatica, right side (principal); K21.9 Gastro-esophageal reflux disease without esophagitis; Z79.899 Other long term (current) drug therapy; Z88.6 Allergy status to analgesic agent
CPT/HCPCS: 36415; 80053; 81001; 85025; 96361; 96374; 96375; 99283; J1170; J3360; J7040; J7050

== ENCOUNTER 2018-08-25 17:28 | Emergency (ER) | payer MEDICAID ==
[2018-08-25] MEDS ORDERED: Sodium Chloride 0.9% 1,000 ML IV ONE (17:59)
[2018-08-25] MEDS ORDERED: Ondansetron 4 MG/2 ML SDV IVPUSH ONE (17:59)
[2018-08-25] MEDS ORDERED: Haloperidol Lactate 5 MG/ML SDV IM ONE (17:59)
[2018-08-25] MEDS ORDERED: Benztropine 1 MG Tab PO STA (17:59)
--- NOTE | 2018-08-25 18:12 | EDM.PDOC ---
ED HPI GENERAL MEDICAL PROBLEM - General Chief Complaint: Gastrointestinal Problem Stated Complaint: VOMITING X 3 DAYS CANT DRINK ANYTHING Time Seen by Provider: 08/25/18 17:38 Source of Information: Reports: Patient, RN Notes Reviewed History Limitations: Reports: No Limitations - History of Present Illness INITIAL COMMENTS - FREE TEXT/NARRATIVE: The patient states that she has had nausea and emesis, generalized body aches, and a headache for the past 3 days. She describes her headache as sharp in character. It waxes and wanes and it is worse if she is supine. She reports both photophobia and phonophobia. She reports seeing dots, but denies having any neurologic symptoms, such as tingling, numbness, or weakness. She states that her current headache is similar to prior headaches, that she gets as often as 2-3 times a week. She states that she is under the care of the Neurologist Dr. Trivedi, and is prescribed both Topamax BID and rizatriptan (Maxalt), , but that due to her nausea and emesis, she cannot hold either of these medicines down. She took one rizatriptan last night, but after she vomited it up , she did not take any today. No recent fever. Patient has had constipation, and no diarrhea. The patient states that the last imaging study of her head was a MRI in mid June. She reports that it found anatomic abnormalities, that she does not recall the names of. The patient acknowledges that she is under a great deal of stress, due to a separation from her . The patient is tearful in the ED. The patient[facility] PCP [facility] at [facility], but the patient does not recall her name. The patient states that her vaccinations are up-to-date, but that she did not receive an influenza vaccine this season. headache Pain Score (Numeric/FACES): 7 generalized aches Pain Score (Numeric/FACES): 5 - Related Data Allergies Allergy/AdvReac Type Severity Reaction Status Date / Time aspirin Allergy Swelling Verified 08/25/18 17:41 Home Meds: Home Meds Citalopram Hydrobromide [Celexa] 40 mg PO DAILY 02/28/18 [History] Omeprazole 40 mg PO DAILY 02/28/18 [History] Ondansetron [Zofran ODT] 1 tab PO Q8H PRN #10 tab.dis 08/25/18 [Rx] Rizatriptan Benzoate [Rizatriptan] 10 mg PO ASDIRECTED PRN 08/25/18 [History] Topiramate [Topamax] 50 mg PO BID 08/25/18 [History] Past Medical History Gastrointestinal History: Reports: GERD, Other (See Below) (Rectocele) LMP (Approximate): Other (See Below) (Ovarian cysts) Musculoskeletal History: Reports: Back Pain, Chronic (due to arthritis) Neurological History: Reports: Migraines - Past Surgical History GI Surgical History: Reports: Cholecystectomy (2009) Female Surgical History: Reports: Hysterectomy, Tubal Ligation (2001) Social & Family History - Family History Family Medical History: Noncontributory - Tobacco Use Smoking Status *Q: Current Every Day Smoker Years of Tobacco use: 24 Packs/Tins Daily: 0.5 - Caffeine Use Caffeine Use: Reports: Coffee - Alcohol Use Alcohol Use History: Yes Alcohol Use Frequency: Rarely - Recreational Drug Use Recreational Drug Use: No - Living Situation & Occupation Living situation: Reports: (), Alone 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 - Physical Exam Exam: See Below Exam Limited By: No Limitations General Appearance: Alert, WD/WN, No Apparent Distress Eye Exam: Bilateral Eye: EOMI, Normal Inspection, PERRL Ears: Normal External Exam, Hearing Grossly Normal Nose: Normal Inspection Throat/Mouth: Normal Inspection, Normal Lips, Normal Voice, No Airway Compromise Head Exam: Atraumatic, Normocephalic Neck: Normal Inspection, Full Range of Motion Respiratory/Chest: No Respiratory Distress, Lungs Clear, Normal Breath Sounds, No Accessory Muscle Use Cardiovascular: Normal Peripheral Pulses, Regular Rate, Rhythm, No Gallop, No JVD, No Murmur, No Rub GI/Abdominal: Normal Bowel Sounds, Soft, Non-Tender, No Organomegaly, No Distention, No Abnormal Bruit, No Mass (Female) Exam: Deferred Rectal (Female) Exam: Deferred Neuro Exam (Abbreviated): Alert, Oriented, CN II-XII Intact, Normal Cognition, No Motor/Sensory Deficits Back Exam: Normal Inspection, Full Range of Motion, NT Extremities: Normal Inspection, Normal Range of Motion, No Pedal Edema, Normal Capillary Refill Psychiatric: Anxious, Tearful Skin Exam: Warm, Dry, Intact, Normal Color, No Rash Course - Vital Signs Last Recorded V/S: Last Vital Signs Temp 36.5 C 08/25/18 17:37 Pulse 96 08/25/18 17:37 Resp 18 08/25/18 17:37 BP 157/93 H 08/25/18 17:37 Pulse Ox 98 08/25/18 17:37 - Orders/Labs/Meds Meds: Medications Discontinued Medications Generic Name Dose Route Start Last Admin Trade Name Na PRN Reason Stop Dose Admin Benztropine Mesylate 1 mg 08/25/18 17:59 08/25/18 18:55 Cogentin PO 08/25/18 18:00 1 mg ONETIME STA Administration Haloperidol Lactate 5 mg 08/25/18 17:59 08/25/18 18:23 Haldol IM 08/25/18 18:00 5 mg ONETIME ONE Administration Sodium Chloride 1,000 mls @ 999 mls/hr 08/25/18 17:59 08/25/18 18:22 Normal Saline IV 08/25/18 18:59 999 mls/hr ONETIME ONE Administration Ondansetron HCl 4 mg 08/25/18 17:59 08/25/18 18:19 Zofran IVPUSH 08/25/18 18:00 4 mg ONETIME ONE Administration - Re-Assessments/Exams Free Text/Narrative Re-Assessment/Exam: 08/25/18 18:17 The patient will receive IM Haldol, IV Zofran, and IV fluid. Once her nausea has subsided, she can receive oral Cogentin. As the patient underwent a MRI just a month and a half ago, and her neurologic exam today is normal, an emergency CT scan of her head is not indicated. 08/25/18 19:09 The patient states that the Haldol significantly improved her headache, and she looks much better now. There is still about 500 mL of IV fluid to infuse, however, I will prepare the patient's discharge at this time. I will send in a prescription for Zofran. With her nausea and emesis under control, the patient can take her usual Topamax, Prilosec, and, if necessary, rizatriptan. Departure - Departure Time of Disposition: 19:10 Disposition: Home, Self-Care 01 Condition: Fair Clinical Impression: Migraine headache with aura - Discharge Information *PRESCRIPTION DRUG MONITORING PROGRAM REVIEWED*: Not Applicable *COPY OF PRESCRIPTION DRUG MONITORING REPORT IN PATIENT SAMANTA: Not Applicable Referrals: PCP,None [Primary Care Provider] - Forms: ED Department Discharge Additional Instructions: You were seen in the emergency room for 3 days of a headache, vomiting, and body aches. You received treatment for migraine headache in the ER, with significant improvement in your symptoms. A prescription for the anti-nausea medicine Zofran has been sent to the [facility], located in the [facility]. The pharmacy will be open until 10:00 tonight. Dissolve one tablet of Zofran on your tongue up to every 8 hours, as needed for nausea/vomiting. Get plenty of rest tonight in a dark, quiet place. Stay adequately hydrated. Follow-up with your PCP as needed. If any other problems, please do not hesitate to return to the ER.
== END 2018-08-25 19:43 | disposition home or self-care (01) ==
LOC: JD.ED 17:28
DX: G43.109 Migraine with aura, not intractable, without status migrainosus (principal); F17.210 Nicotine dependence, cigarettes, uncomplicated; K21.9 Gastro-esophageal reflux disease without esophagitis; Z88.6 Allergy status to analgesic agent; Z79.899 Other long term (current) drug therapy
CPT/HCPCS: 96361; 96372; 96374; 99284; A9270; J1630; J2405; J7040

== ENCOUNTER 2018-09-03 05:50 | Emergency (ER) | payer MEDICAID ==
--- NOTE | 2018-09-03 07:23 | EDM.PDOC ---
ED HPI GENERAL MEDICAL PROBLEM - General Chief Complaint: Lower Extremity Injury/Pain Stated Complaint: RIGHT ANKLE INJURY Time Seen by Provider: 09/03/18 07:00 Source of Information: Reports: Patient History Limitations: Reports: No Limitations - History of Present Illness INITIAL COMMENTS - FREE TEXT/NARRATIVE: The patient presents with right ankle and foot pain. She says she slipped and fell on Thursday and her ankle ended up under her. She can walk on it but she has pain and swelling. She has no other injury. Onset: Sudden Duration: Day(s): Location: Reports: Upper Extremity, Right (ankle and foot) Quality: Reports: Sharp Severity: Severe Improves with: Reports: Immobilization Worsens with: Reports: Movement Context: Reports: Trauma (slipped and fell) Associated Symptoms: Reports: No Other Symptoms Right Ankle Pain Score (Numeric/FACES): 8 - Related Data Allergies Allergy/AdvReac Type Severity Reaction Status Date / Time aspirin Allergy Swelling Verified 09/03/18 06:32 Home Meds: Home Meds Citalopram Hydrobromide [Celexa] 40 mg PO DAILY 02/28/18 [History] Omeprazole 40 mg PO DAILY 02/28/18 [History] Rizatriptan Benzoate [Rizatriptan] 10 mg PO ASDIRECTED PRN 08/25/18 [History] Topiramate [Topamax] 50 mg PO BID 08/25/18 [History] Hydrocodone/Acetaminophen [Hydrocodon-Acetaminophen 5-325] 1 - 2 each PO Q6HR PRN #10 tablet 09/03/18 [Rx] Past Medical History Cardiovascular History: Reports: Syncope Gastrointestinal History: Reports: GERD Other Gastrointestinal History: rectocele 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 Musculoskeletal History: Reports: Back Pain, Chronic Neurological History: Reports: Migraines - Past Surgical History GI Surgical History: Reports: Cholecystectomy Female Surgical History: Reports: Hysterectomy, Tubal Ligation Social & Family History - Family History Family Medical History: Noncontributory - Tobacco Use Smoking Status *Q: Current Every Day Smoker Years of Tobacco use: 20 Packs/Tins Daily: 0.2 - Caffeine Use Caffeine Use: Reports: Coffee - Recreational Drug Use Recreational Drug Use: No - Living Situation & Occupation Living situation: Reports: (), Alone 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) Review of Systems - Review of Systems Review Of Systems: See Below Constitutional: Reports: No Symptoms Eyes: Reports: No Symptoms Ears: Reports: No Symptoms Nose: Reports: No Symptoms Mouth/Throat: Reports: No Symptoms Respiratory: Reports: No Symptoms Cardiovascular: Reports: No Symptoms GI/Abdominal: Reports: No Symptoms Genitourinary: Reports: No Symptoms Musculoskeletal: Reports: Other (Right ankle and foot pain) ED EXAM, GENERAL - Physical Exam Exam: See Below Exam Limited By: No Limitations General Appearance: Alert, No Apparent Distress Ears: Normal External Exam Nose: Normal Inspection Head: Atraumatic, Normocephalic Neck: Normal Inspection Respiratory/Chest: No Respiratory Distress Extremities: Other (Moderate pain upon palpation to the lateral malleolus and to the top of the foot. Mild swelling. Good sensation and pulses distally.) Course - Vital Signs Last Recorded V/S: Last Vital Signs Temp 98.1 F 09/03/18 06:29 Pulse 75 09/03/18 06:29 Resp 16 09/03/18 06:29 BP 131/94 H 09/03/18 06:29 Pulse Ox 97 09/03/18 06:29 - Orders/Labs/Meds Orders: Active Orders 24 hr Category Date Time Status Ankle Min 3V Rt [CR] Stat Exams 09/03/18 06:34 Taken Foot Comp Min 3V Rt [CR] Stat Exams 09/03/18 06:58 Taken - Re-Assessments/Exams Free Text/Narrative Re-Assessment/Exam: 09/03/18 07:19 X-rays of her foot and ankle look good. Departure - Departure Time of Disposition: 07:25 Disposition: Home, Self-Care 01 Condition: Good Clinical Impression: Right ankle sprain Qualifiers: Encounter type: initial encounter Involved ligament of ankle: unspecified ligament Qualified Code(s): S93.401A - Sprain of unspecified ligament of right ankle, initial encounter - Discharge Information *PRESCRIPTION DRUG MONITORING PROGRAM REVIEWED*: No *COPY OF PRESCRIPTION DRUG MONITORING REPORT IN PATIENT SAMANTA: No Prescriptions: Hydrocodone/Acetaminophen [Hydrocodon-Acetaminophen 5-325] 1 - 2 each PO Q6HR PRN #10 tablet PRN Reason: Pain Referrals: Elaine Vazquez MD [Primary Care Provider] - Additional Instructions: Ice your ankle for 15 minutes 3 times per day for 2 days. Elevate your leg as much as you can for 2 days. Wear the splint as needed for comfort. Follow up with a physical therapist in [facility]. - My Orders Last 24 Hours: My Active Orders 09/03/18 06:34 Ankle Min 3V Rt [CR] Stat 09/03/18 06:58 Foot Comp Min 3V Rt [CR] Stat - Assessment/Plan Last 24 Hours: My Active Orders 09/03/18 06:34 Ankle Min 3V Rt [CR] Stat 09/03/18 06:58 Foot Comp Min 3V Rt [CR] Stat
--- NOTE | 2018-09-03 08:13 | CR ---
Right foot: Three views of the right foot were obtained. Comparison: No prior foot exam. Joint spaces are preserved. No fracture, dislocation or other bony abnormality is seen. Impression: 1. No abnormality is appreciated on right foot exam. Diagnostic code #1
--- NOTE | 2018-09-03 08:13 | CR ---
Right ankle: Four views of the right ankle were obtained. Comparison: No previous study. Ankle mortise is symmetric. Mild soft tissue swelling is seen. No fracture, dislocation or other bony abnormality is seen. Impression: 1. Soft tissue swelling. No bony abnormality is identified on right ankle exam. Diagnostic code #2
== END 2018-09-03 08:00 | disposition home or self-care (01) ==
LOC: JD.ED 05:50
DX: S93.401A Sprain of unspecified ligament of right ankle, initial encounter (principal); K21.9 Gastro-esophageal reflux disease without esophagitis; F17.210 Nicotine dependence, cigarettes, uncomplicated; W01.0XXA Fall on same level from slipping, tripping and stumbling without subsequent striking against object, initial encounter; Z88.8 Allergy status to other drugs, medicaments and biological substances; Z79.899 Other long term (current) drug therapy
CPT/HCPCS: 73610-26-RT; 73610-RT; 73630-26-RT; 73630-RT; 99282; 99283